=== PATIENT | male | born 2000 ===

== ENCOUNTER → 2023-03-22 12:42 | Outpatient (CLI) | payer BC, SELFPAY ==
--- NOTE | ~2023-03-22 | MR_ITS ---
EXAMINATION: MR shoulder LT wo con DATE: 03/22/2023 13:27 INDICATION: Left shoulder pain. TECHNIQUE: Magnetic resonance imaging (MRI) of the left shoulder was performed without intravenous co ntrast. Sequences included axial PD-weighted FS FSE, coronal oblique PD-weighted FS FSE and T2-weight ed FS FSE, and sagittal oblique T2-weighted FS FSE and T1-weighted FSE. COMPARISON: None. FINDINGS: Coracoacromial arch: The acromion undersurface is curved in morphology (type II). There is mild osteoarthritis of acromioc lavicular joint with prominent edema-like marrow signal intensity. There is a physiologic volume of f luid in subacromial/subdeltoid bursa. Rotator cuff: There is mild supraspinatus and infraspinatus tendinopathy. Teres minor tendon is normal. Subscapular is tendon is normal. The rotator cuff muscle bellies are normal. Biceps tendon and glenoid labrum: Biceps tendon is in bicipital groove. Intra-articular biceps tendon is normal. The glenoid labrum is normal. Fluid: There is no glenohumeral joint effusion. Bones/cartilage: Humeral head cartilage is normal. Glenoid cartilage is normal. IMPRESSION: 1. Mild osteoarthritis of acromioclavicular joint. 2. Mild rotator cuff tendinopathy. Reviewed, dictated and finalized at location E.
== END ==
DX: M25.512 Pain in left shoulder (principal); M19.012 Primary osteoarthritis, left shoulder; M77.8 Other enthesopathies, not elsewhere classified
CPT/HCPCS: 73221